=== PATIENT | male | born 1970 | race American Indian/Alaskan Native ===

== ENCOUNTER 2021-08-10 10:02 | Emergency (ER) | payer SELFPAY ==
[2021-08-10 10:41] VITALS: BP 125/72
--- NOTE | 2021-08-10 11:36 | XRay Report ---
RIGHT ANKLE 3 VIEWS INDICATION / CLINICAL INFORMATION: fall, ankle injury. COMPARISON: None available. FINDINGS: BONES / JOINT(S): There is a mildly displaced fracture of the medial malleolus with widening of the a nkle mortise. There is also a mildly displaced oblique fracture in the distal fibular shaft. SOFT TISSUES: Soft tissues along throughout the ankle. ADDITIONAL FINDINGS: None. Signer Name: Marino Self MD Signed: 08/10/2021 11:31 AM Workstation Name: [id number]
[2021-08-10] MEDS ORDERED: HYDROcodone/ACETAMINOPHEN 5-325 MG TAB PO ONE (12:04)
--- NOTE | 2021-08-10 12:12 | Emergency Department Report ---
ED Lower Extremity HPI - General Chief Complaint: Extremity Injury, Lower Stated Complaint: ANKLE SPRAIN RT Time Seen by Provider: 08/10/21 11:32 Source: patient, EMS Mode of arrival: Stretcher Limitations: Physical Limitation - History of Present Illness Initial Comments: PATIENT FELL AND INJURED RIGHT ANKLE MD Complaint: ankle injury -: Sudden, hour(s) Injury: Ankle: Right Type of Injury: inversion Place: work Severity: moderate Severity scale (0 -10): 5 Improves With: immobilization - Related Data Allergies Allergy/AdvReac Type Severity Reaction Status Date / Time No Known Allergies Allergy Verified 08/10/21 10:32 ED Review of Systems ROS: Stated complaint: ANKLE SPRAIN RT Other details as noted in HPI Constitutional: denies: chills, fever Eyes: denies: eye pain, eye discharge, vision change ENT: denies: ear pain, throat pain Respiratory: denies: cough, shortness of breath, wheezing Cardiovascular: denies: chest pain, palpitations Endocrine: no symptoms reported Gastrointestinal: denies: abdominal pain, nausea, diarrhea Genitourinary: denies: urgency, dysuria Musculoskeletal: denies: back pain, joint swelling, arthralgia Skin: denies: rash, lesions Neurological: denies: headache, weakness, paresthesias Psychiatric: denies: anxiety, depression Hematological/Lymphatic: denies: easy bleeding, easy bruising ED Past Medical Hx - Past Medical History Previous Medical History?: No Hx Hypertension: No ED Physical Exam - General Limitations: Physical Limitation General appearance: alert, in no apparent distress - Head Head exam: Present: atraumatic, normocephalic - Eye Eye exam: Present: normal appearance - ENT ENT exam: Present: mucous membranes moist - Neck Neck exam: Present: normal inspection - Respiratory Respiratory exam: Present: normal lung sounds bilaterally. Absent: respiratory distress - Cardiovascular Cardiovascular Exam: Present: regular rate, normal rhythm. Absent: systolic murmur, diastolic murmur, rubs, gallop - GI/Abdominal GI/Abdominal exam: Present: soft, normal bowel sounds - Rectal Rectal exam: Present: deferred - Extremities Exam Extremities exam: Present: normal inspection - Expanded Lower Extremity Exam Right Ankle exam: Present: tenderness, swelling - Back Exam Back exam: Present: normal inspection - Neurological Exam Neurological exam: Present: alert, oriented X3 - Psychiatric Psychiatric exam: Present: normal affect, normal mood - Skin Skin exam: Present: warm, dry, intact, normal color. Absent: rash ED Course Vital Signs 08/10/21 10:39 Temperature 97.9 F Pulse Rate 83 Respiratory 18 Rate Blood Pressure 125/72 [Left] O2 Sat by Pulse 94 Oximetry ED Lower Extremity MDM - Radiology Data Radiology results: report reviewed, image reviewed - Medical Decision Making work up showed right ankle fracture mildy displaced , splinted crutches and rerferral ro ortho Critical care attestation.: If time is entered above; I have spent that time in minutes in the direct care of this critically ill patient, excluding procedure time. ED Disposition Clinical Impression: Closed right ankle fracture Disposition: HOME / SELF CARE / HOMELESS Is pt being admited?: No Does the pt Need Aspirin: No Condition: Stable Instructions: Cast or Splint Care, Adult, [id number], Nondisplaced Fibular Ankle Fracture Treated With Immobilization, Adult Referrals: RIANNA LAZARO MD [Staff Physician] - 3-5 Days
== END 2021-08-10 23:13 | disposition home or self-care (01) ==
LOC: ED 10:02
DX: S82.891A Other fracture of right lower leg, initial encounter for closed fracture (principal); X58.XXXA Exposure to other specified factors, initial encounter; Y93.89 Activity, other specified; Y92.89 Other specified places as the place of occurrence of the external cause; Y99.8 Other external cause status
CPT/HCPCS: 99284